=== PATIENT | female | born 2000 | race African-American/Black ===

== ENCOUNTER 2022-07-01 15:06 | Emergency (ER) | payer MEDICAID ==
[~2022-07-01] VITALS: Ht 157.5 cm; Wt 75.0 kg
[2022-07-01 15:24] VITALS: BP 133/101
[2022-07-01] MEDS ORDERED: IBUP-2029 MT (15:56)
[2022-07-01] MEDS ORDERED: IBUPROFEN 600MG TABLET PO ONE (16:00)
[2022-07-01] MEDS ORDERED: ACETAMINOPHEN 325MG TABLET PO ONE (16:30)
== END 2022-07-01 17:00 | disposition home or self-care (01) ==
LOC: ER 15:06
DX: M21.42 Flat foot [pes planus] (acquired), left foot (principal); M21.41 Flat foot [pes planus] (acquired), right foot
CPT/HCPCS: 73630; 81025; 99283

== ENCOUNTER 2022-07-18 12:12 | Emergency (ER) | payer SELFPAY ==
[~2022-07-18] VITALS: Ht 167.6 cm; Wt 81.0 kg
[~2022-07-18 12:12] MED LIST: IBUP-2029 MT
[2022-07-18] MEDS ORDERED: HYDROCODONE/ACETAMINOPHEN 5/325MG TABLET PO ONE (13:30)
[2022-07-18 13:56] VITALS: BP 144/93
[2022-07-18] MEDS ORDERED: IBUP-2029 MT (14:35)
[2022-07-18] MEDS ORDERED: AMOX1TAB16 MT (14:35)
[2022-07-18] MEDS ORDERED: HYDR-4001 MT (14:35)
== END 2022-07-18 14:53 | disposition home or self-care (01) ==
LOC: ER 12:12
DX: K04.7 Periapical abscess without sinus (principal)
CPT/HCPCS: 81025; 99283